=== PATIENT | female | born 1990 | race Caucasian/White ===

== ENCOUNTER 2018-09-14 09:22 | Outpatient (REF) | payer OTHER, SELFPAY ==
--- NOTE | 2018-09-14 08:45 | PAPFT_PTH ---
PATIENT: Josie Ferrer LOC: [facility] U#:[id number] AGE/SX: 27/F ROOM: RE09/14/[address]: Mimi Spence : 1990 BED: DIS: 09/14/2018 SPEC #: [id number] RECD: 09/14/18 13:00 STATUS: MILES ANDERSON #: [id number] JANNETTE: 09/14/18 08:[address]: Mimi Spence DEPT: [facility] Cytology RECD BY: Dyana Tafoya Tissues: 1 - CX/ENDOCX FOR PAP SMEARS Procedures: PAP THIN PREP/[facility] Screening Comments: [id number]
== END 2018-09-14 09:42 ==
LOC: NCHCN 09:22
PROVIDERS: PCP Nurse Practitioner; Visit Provider Nurse Practitioner
DX: Z00.00 Encounter for general adult medical examination without abnormal findings (principal); Z12.4 Encounter for screening for malignant neoplasm of cervix
CPT/HCPCS: 88142

== ENCOUNTER → 2019-03-14 13:32 | Outpatient (BNVA) | payer OTHER, SELFPAY | PROVIDERS: PCP Nurse Practitioner; Referring Provider Nurse Practitioner; Visit Provider Surgery | DX: R10.12 Left upper quadrant pain (principal) | CPT/HCPCS: 99202; 99213 ==

== ENCOUNTER 2019-03-22 01:37 | Outpatient (CLI) | payer OTHER, SELFPAY ==
--- NOTE | 2019-03-22 09:00 | DI.CT_ITS ---
SYMPTOM/DIAGNOSIS: LEFT UPPER QUADRANT PAIN, R10.[address]: 03/22 CT examination of the abdomen was performed with intravenous infusion of 100 cc Omnipaque 350 and ingestion of dilute Barium. Venous phase imaging was performed. Images obtained through the lung bases are unremarkable. There are numerous high attenuation hepatic lesions in both right and left hepatic lobes which are mildly heterogeneous and measure up to about 3.6 cm in diameter. These have poorly defined borders. One of these lesions has a central focus of decreased attenuation. These are all high attenuation presumably enhancing lesions. No biliary dilatation. Gallbladder is CT normal. Pancreas and spleen appear normal. Visualized bowel is unremarkable except for slight wall thickening and fold thickening of a few proximal jejunal loops. Appendix is normal. No adenopathy seen in the upper abdomen. Abdominal aorta is unremarkable and visualized major branches appear normal. No abdominal wall hernia seen. CONCLUSION: Multiple hepatic lesions which are indeterminate on this portal venous phase study, the differential diagnosis would include focal nodular hyperplasia, hepatic adenoma, or hepatocellular carcinoma. Metastatic disease not excluded. Clinical correlation regarding history of cirrhosis or known primary malignancy. Correlation with hepatic MRI recommended.
[2019-03-22] MEDS: Omnipaque 350 MG/ML 100 ML BTL IJ (09:08)
[2019-03-22] MEDS: Omnipaque 350 MG/ML 50 ML BTL 25 ML PO (09:08)
[2019-03-22] MEDS: Breeza Beverage 473 ML BTL PO (09:09)
== END 2019-03-22 01:57 ==
PROVIDERS: PCP Nurse Practitioner; Visit Provider Surgery
DX: K76.89 Other specified diseases of liver (principal)
CPT/HCPCS: 74160; J3490; Q9967

== ENCOUNTER 2019-09-26 16:44 | Outpatient (REF) | payer OTHER, SELFPAY ==
[2019-09-26 19:58] LABS: HCT 41.4 % (36.0-46.0); HGB 13.9 g/dL (12.0-15.5); Mean Corp. HGB Concentration 33.6 g/dL (32.0-36.0); Mean Corpuscular Hemoglobin 31.4 pg (27.0-33.0); Mean Corpuscular Volume 93.5 fL (80-95); Mean Platelet Volume 10.1 fL (8.0-11.0); Platelet Count 383 x1000/uL (130-400); RBC 4.43 m/cumm (4.00-5.20); RBC Distribution Width 12.1 % (11.7-14.6); White Blood Cell Count 9.59 k/cumm (4.4-10.8)
[2019-09-26 20:38] LABS: ALT 22 U/L (14-59); AST 19 U/L (15-37); Alkaline Phosphatase 46 U/L (46-116); Anion Gap 12.1 mmol/L (3-11); BUN 18 mg/dL (7-18); Bilirubin, Total 0.2 mg/dL (0.2-1.0); CO2 23.9 mmol/L (21.0-32.0); CREATININE 0.91 mg/dL (0.55-1.02); Calcium 8.8 mg/dL (8.5-10.1); Chloride 104 mmol/L (98-107); Glucose 85 mg/dL (74-106); Potassium 4.1 mmol/L (3.5-5.1); Sodium 140 mmol/L (136-145); Total Protein 7.2 g/dL (6.4-8.2)
[2019-09-26 21:07] LABS: Vitamin D 25 Total 25.9 ng/ml (30-100)
== END 2019-09-26 17:04 ==
LOC: NCHCN 16:44
PROVIDERS: PCP Nurse Practitioner; Visit Provider Nurse Practitioner
DX: F41.9 Anxiety disorder, unspecified (principal); Z13.21 Encounter for screening for nutritional disorder; Z83.3 Family history of diabetes mellitus
CPT/HCPCS: 80053; 82306; 85027; 84443

== ENCOUNTER 2021-11-07 14:58 | Outpatient (REF) | payer MEDICAID, SELFPAY ==
--- NOTE | 2021-11-07 13:40 | PAPFT_PTH ---
PATIENT: Josie Ferrer LOC: [facility]#:[id number] AGE/SX: 30/F ROOM: RE11/07/[address]: Lois Warren : 1990 BED: DIS: 11/07/2021 SPEC #: [id number] RECD: 11/07/21 17:45 STATUS: MILES REEda #: [id number] JANNETTE: 11/07/21 13:[address]: Lois Warren DEPT: [facility] Cytology RECD BY: Dyana Tafoya ENTERED: 11/07/21 17:46 SP TYPE: PAPFT OTHR DR: Mimi Spence Tissues: 1 - CX/ENDOCX FOR PAP SMEARS Procedures: PAP THIN PREP/[facility] Screening HPV DNA PROBE Comments: [id number]
== END 2021-11-07 14:59 | disposition home or self-care (01) ==
LOC: NCHCN 14:58
PROVIDERS: PCP Nurse Practitioner; Visit Provider Nurse Practitioner Family
DX: Z00.00 Encounter for general adult medical examination without abnormal findings (principal); Z11.51 Encounter for screening for human papillomavirus (HPV); Z12.4 Encounter for screening for malignant neoplasm of cervix
CPT/HCPCS: 88142; 87624

== ENCOUNTER 2022-10-21 00:43 | Outpatient (CLI) | payer MEDICAID, SELFPAY ==
--- NOTE | 2022-10-21 07:00 | DI.US_ITS ---
Exam(s) US PELVIS TRANSVAGINAL EXAM: US PELVIS TRANSVAGINAL CLINICAL HISTORY: iud localization,difficult insertion,prior malposition of iud,z97.5 TECHNIQUE: Transabdominal and transvaginal imaging was performed using standard protocol. COMPARISON: US BIOPHYSICAL PROFILE AND LTD OB from 04/20/[address] ABDOMEN W from 03/22/2019 FINDINGS: UTERUS: Anteverted. 8.5 by 5 x 7.2 cm Endometrium: 6 mm. IUD appears positioned low, in the cervix. Myometrium: Unremarkable. Cervix: Unremarkable. OVARIES: Right: Cyst or mass: None. Left: Cyst or mass: None. DOPPLER: Color: Symmetric and uniform flow to both ovaries. No hyperemia. CUL-DE-SAC: Free fluid: None. IMPRESSION: 1. Normal-appearing uterus with endometrial stripe within normal limits. IUD positioned abnormally l ow in the cervix. 2. Unremarkable bilateral ovaries. DATA REPOSITORY:
== END 2022-10-21 01:03 ==
LOC: DI 00:44
PROVIDERS: PCP Nurse Practitioner Family; Visit Provider Obstetrics & Gynecology
DX: Z30.431 Encounter for routine checking of intrauterine contraceptive device (principal); Z97.5 Presence of (intrauterine) contraceptive device
CPT/HCPCS: 76830; 76856

== ENCOUNTER 2025-07-28 00:42 | Outpatient (CLI) | payer OTHER, SELFPAY ==
[2025-07-28 10:01] LABS: Hemoglobin A1C 5.1 % (<5.7)
[2025-07-28 10:33] LABS: ALT 22 U/L (10-49); AST 25 U/L (<34); Albumin 4.6 g/dL (3.2-5.0); Alkaline Phosphatase 52 U/L (46-116); Anion Gap 9.3 mmol/L (3-11); BUN 15 mg/dL (9-23); Bilirubin, Total 0.6 mg/dL (0.2-1.2); CO2 25.7 mmol/L (20.0-31.0); Calcium 8.9 mg/dL (8.3-10.6); Chloride 106 mmol/L (98-107); Cholesterol 172 mg/dL (<200); Glucose 84 mg/dL (74-106); HDL Cholesterol 75 mg/dL (>or=50); Potassium 4.2 mmol/L (3.5-5.1); Sodium 141 mmol/L (136-145); TSH (W/Ref FT4) 0.96 uIU/mL (0.55-4.78); Total Protein 7.7 g/dL (5.7-8.2)
== END 2025-07-28 00:43 | disposition home or self-care (01) ==
PROVIDERS: PCP Nurse Practitioner Family; Visit Provider Nurse Practitioner Family
DX: Z00.00 Encounter for general adult medical examination without abnormal findings (principal); F41.9 Anxiety disorder, unspecified; E66.3 Overweight; N94.6 Dysmenorrhea, unspecified
CPT/HCPCS: 36415; 80053; 80061; 83036; 84443